=== PATIENT | male | born 1975 | race Hispanic/Latino ===

== ENCOUNTER 2022-05-13 06:48 | Emergency (ER) | payer OTHER ==
[~2022-05-13] VITALS: Ht 180.3 cm; Wt 115.7 kg
[2022-05-13 07:04] LABS: HEMATOCRIT 48.9 % (42-54); MEAN CORPUSCULAR HEMOGLOBIN 29.4 pg (27.0-33.0); MEAN CORPUSCULAR HGB CONC 33.9 g/dL (32.0-36.0); MEAN CORPUSCULAR VOLUME 86.5 fL (79-99); PLATELET COUNT (AUTO) 320 K/uL (130-400); RED BLOOD CELL COUNT(AUTO) 5.65 MIL/uL (4.50-6.20); RED CELL DISTRIBUTION WIDTH 12.8 % (11.0-15.5); WHITE BLOOD COUNT (AUTO) 16.6 K/uL (4.8-10.8)
[2022-05-13 07:18] LABS: ALBUMIN 3.1 g/dL (3.5-5.0); CREATININE 1.1 mg/dL (0.5-1.5); TOTAL PROTEIN, SERUM 6.3 g/dL (6.0-8.3)
[2022-05-13 07:19] LABS: BAND NEUTROPHILS % (MANUAL) 1 % (0-2); EOSINOPHILS % (MANUAL) 2 % (1-6); LYMPHOCYTES % (MANUAL) 27 % (22-44); MONOCYTES % (MANUAL) 7 % (2-9); REACTIVE LYMPHOCYTES 10 % (0-0); SEGMENTED NEUTROPHILS % 53 % (40-70)
[2022-05-13 07:20] LABS: MAN.DIFF COMMENT-IMPRESSION MANUAL DIFFERENTIAL; PLATELET MORPHOLOGY COMMENT ADEQUATE
[2022-05-13] MEDS ORDERED: ONDANSETRON 4MG INJ IVP ONE (07:30)
[2022-05-13] MEDS ORDERED: FAMOTIDINE 20MG VIAL IV ONE (07:30)
[2022-05-13] MEDS ORDERED: LIDOCAINE HCL 2% VISCOUS 15 ML UDCUP PO ONE (07:30)
[2022-05-13] MEDS ORDERED: MAG/ALUM/SIMETH 30 ML UDCUP PO ONE (07:30)
[2022-05-13] MEDS ORDERED: 0.9%NACL 1000ML 1,000 ML IV SCH (07:30)
[2022-05-13] MEDS ORDERED: IOHEXOL 350 MG/ML 100ML INFUS..BTL IV ONE (07:45)
[2022-05-13] MEDS ORDERED: SUCRALFATE 1 GM TABLET PO SCH (08:30)
[2022-05-13 08:40] LABS: APPEARANCE,URINE CLEAR (CLEAR); BILIRUBIN,URINE NEGATIVE (NEGATIVE); COLOR,URINE YELLOW (YELLOW); GLUCOSE, URINE (UA) NEGATIVE (NEGATIVE); KETONES,URINE NEGATIVE (NEGATIVE); LEUKOCYTE ESTERASE ,URINE NEGATIVE (NEGATIVE); NITRATE,URINE NEGATIVE (NEGATIVE); OCCULT BLOOD,URINE NEGATIVE (NEGATIVE); PH,URINE 6.5 (5.0-8.0); PROTEIN,URINE NEGATIVE (NEGATIVE); UROBILINOGEN,URINE 0.2 mg/dL (0.2-1.0)
[2022-05-13] MEDS ORDERED: DiphenhydrAMINE HCL 50 MG/ML VIAL IV ONE (09:30)
[2022-05-13] MEDS ORDERED: KETOROLAC 30MG VIAL (30MG/ML) IVP ONE (09:30)
[2022-05-13 09:48] VITALS: BP 141/83
[2022-05-13] MEDS ORDERED: OMEP20CA12 PO (09:48)
[2022-05-13] MEDS ORDERED: SUCR1TAB PO (09:48)
[2022-05-13] MEDS ORDERED: FAMO-136 PO (09:48)
== END 2022-05-13 10:10 | disposition home or self-care (01) ==
LOC: EDH 06:48
DX: K29.70 Gastritis, unspecified, without bleeding (principal); Z88.5 Allergy status to narcotic agent
CPT/HCPCS: 99285; 74177; 96374; 96361; 96375; 71045; 82270; 84484; 80053; 83690; 85025; 81003; 36415; 93005; J1200; J3490; J2405; J1885; Q9967

== ENCOUNTER 2024-05-26 13:50 | Emergency (ER) | payer BC ==
[~2024-05-26] VITALS: Ht 180.3 cm; Wt 117.9 kg
[~2024-05-26 13:50] MED LIST: FAMO-136 PO; OMEP20CA12 PO; SUCR1TAB PO
[2024-05-26 14:36] LABS: BASOPHILS # (AUTO) 0.06 K/uL (0.00-0.20); BASOPHILS % (AUTO) 0.8 % (0.0-5.0); EOSINOPHILS # (AUTO) 0.06 K/uL (0.00-0.70); EOSINOPHILS % (AUTO) 0.8 % (0.0-8.0); HEMATOCRIT 49.6 % (42-54); IMMATURE GRANULOCYTE ABSOLUTE 0.08 K/uL (0-1); LYMPHOCYTES # (AUTO) 2.8 K/uL (1.0-4.8); LYMPHOCYTES % (AUTO) 35.3 % (21.0-51.0); MEAN CORPUSCULAR HEMOGLOBIN 29.7 pg (27.0-33.0); MEAN CORPUSCULAR HGB CONC 33.7 g/dL (32.0-36.0); MEAN CORPUSCULAR VOLUME 88.1 fL (79-99); MONOCYTES # (AUTO) 0.4 K/uL (0.1-1.0); MONOCYTES % (AUTO) 4.6 % (3.0-13.0); NEUTROPHILS # (AUTO) 4.6 K/uL (1.8-7.7); NEUTROPHILS % (AUTO) 57.5 % (40.0-77.0); PLATELET COUNT (AUTO) 317 K/uL (130-400); RED BLOOD CELL COUNT(AUTO) 5.63 MIL/uL (4.50-6.20); RED CELL DISTRIBUTION WIDTH 12.8 % (11.0-15.5)
[2024-05-26] MEDS: LACTATED RINGERS 1000ML 1,000 ML IV ONE (14:40)
[2024-05-26 14:42] LABS: CREATININE 1.2 mg/dL (0.5-1.3); POTASSIUM 3.8 mmol/L (3.5-5.1)
[2024-05-26 15:29] LABS: APPEARANCE,URINE CLEAR (CLEAR); BILIRUBIN,URINE NEGATIVE (NEGATIVE); COLOR,URINE LIGHT-YELLOW (YELLOW); GLUCOSE, URINE (UA) NEGATIVE (NEGATIVE); KETONES,URINE NEGATIVE (NEGATIVE); LEUKOCYTE ESTERASE ,URINE NEGATIVE Leu/uL (NEGATIVE); NITRATE,URINE NEGATIVE (NEGATIVE); OCCULT BLOOD,URINE NEGATIVE (NEGATIVE); PH,URINE 5.5 (5.0-8.0); PROTEIN,URINE NEGATIVE (NEGATIVE); UROBILINOGEN,URINE 0.2 mg/dL (0.2-1.0)
[2024-05-26 15:30] LABS: ADD UA MICROSCOPIC YES; MUCUS,URINE RARE LPF (None Seen); RBC,URINE 0-1 /HPF (0-1); WBC,URINE 0-1 /HPF (0-1)
[2024-05-26] MEDS: DEXAMETHASONE SOD PHOSPHATE 4 MG/ML 1ML VIAL IM ONE (16:41)
[2024-05-26] MEDS ORDERED: AMOX1TAB16 PO (16:44)
[2024-05-26] MEDS ORDERED: LORA10TA7 PO (16:44)
[2024-05-26] MEDS ORDERED: FLUT16H NASAL (16:44)
[2024-05-26 17:06] VITALS: BP 194/92; PULSE 78; RESP 18; O2SAT 98
== END 2024-05-26 17:13 | disposition home or self-care (01) ==
LOC: EDH 13:50
DX: J32.9 Chronic sinusitis, unspecified (principal); E86.0 Dehydration; Z79.899 Other long term (current) drug therapy; Z88.5 Allergy status to narcotic agent
CPT/HCPCS: 99284; 96360; 71045; 96361; 82550; 84484 ×2; 80048; 85025; 81001; 36415; 96372; 93005; J1100; J7120